=== PATIENT | male | born 1935 | race Asian ===

== ENCOUNTER 2024-08-24 14:28 | Outpatient (RCR) | payer MEDICARE, BC, SELFPAY ==
--- NOTE | 2024-08-24 15:28 | CTCFLWUP_ITS ---
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 Plain x-rays pelvis and throughout the lumbar spine performed about 2 years ago in September 2022 suggested arthritis more than bone mets. Most recent PSA remains elevated but stable at 24.7 on 08/04/2024. It was 20.2 on 08/14/2023. Alk phos remains low at 44. Has no increase in pain symptoms anywhere. 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 He will contact me for any significant rise in PSA or any increased bone pain. Electronically signed by: Francisco Miller M.D. 08/24/2024 3:25 PM
== END 2024-08-26 23:59 | disposition home or self-care (01) ==
LOC: SCTC 14:28
PROVIDERS: PCP Family Medicine; Referring Provider Radiology Therapeutic Radiology; Visit Provider Radiology Therapeutic Radiology
DX: C61 Malignant neoplasm of prostate (principal); R97.21 Rising PSA following treatment for malignant neoplasm of prostate
CPT/HCPCS: 99212; G0463